=== PATIENT | male | born 1950 | race Caucasian/White ===

== ENCOUNTER 2019-06-25 09:53 | Outpatient (REF) | payer MEDICARE, BC, SELFPAY ==
[2019-06-25 20:34] LABS: Anion Gap 8.6 mmol/L (3-11); BUN 24 mg/dL (7-18); CO2 28.4 mmol/L (21.0-32.0); CREATININE 1.18 mg/dL (0.70-1.30); Calcium 9.1 mg/dL (8.5-10.1); Chloride 105 mmol/L (98-107); Glucose 94 mg/dL (74-106); Potassium 3.8 mmol/L (3.5-5.1); Sodium 142 mmol/L (136-145); Uric Acid 7.5 mg/dL (3.5-7.2)
== END 2019-06-25 10:13 ==
LOC: NCHCN 09:53
PROVIDERS: PCP Internal Medicine; Visit Provider Internal Medicine
DX: I10 Essential (primary) hypertension (principal); I25.10 Atherosclerotic heart disease of native coronary artery without angina pectoris; M10.9 Gout, unspecified; E66.3 Overweight
CPT/HCPCS: 80048; 84550

== ENCOUNTER 2019-12-24 10:44 | Outpatient (REF) | payer MEDICARE, BC, SELFPAY ==
[2019-12-24 20:02] LABS: Uric Acid 8.3 mg/dL (3.5-7.2)
[2019-12-24 20:21] LABS: ALT 77 U/L (16-63); AST 40 U/L (15-37); Calculated LDL 64 mg/dL (<100); Cholesterol 137 mg/dL (<200); HDL Cholesterol 29 mg/dL (40-60); Triglyceride 223 mg/dL (<150)
== END 2019-12-24 11:04 ==
LOC: NCHCN 10:44
PROVIDERS: Internal Medicine Cardiovascular Disease; PCP Internal Medicine; Visit Provider Internal Medicine
DX: M10.9 Gout, unspecified (principal); I10 Essential (primary) hypertension
CPT/HCPCS: 80061; 84450; 84460; 84550

== ENCOUNTER 2020-01-28 13:42 | Outpatient (REF) | payer MEDICARE, BC, SELFPAY ==
[2020-01-31 09:21] LABS: PSA, Screening 0.9 ng/mL (0.0-4.5)
== END 2020-01-28 14:02 ==
LOC: NCHCN 13:42
PROVIDERS: PCP Internal Medicine; Visit Provider Internal Medicine
DX: Z12.5 Encounter for screening for malignant neoplasm of prostate (principal)
CPT/HCPCS: 84153

== ENCOUNTER 2020-12-25 08:02 | Outpatient (REF) | payer MEDICARE, BC, SELFPAY ==
[2020-12-25 14:59] LABS: ALT 156 U/L (16-63); AST 76 U/L (15-37); Albumin 4.4 g/dL (3.4-5.0); Alkaline Phosphatase 121 U/L (46-116); Anion Gap 9.7 mmol/L (3-11); BUN 25 mg/dL (7-18); Bilirubin, Total 1.4 mg/dL (0.2-1.0); CO2 28.3 mmol/L (21.0-32.0); CREATININE 1.4 mg/dL (0.70-1.30); Calcium 9.4 mg/dL (8.5-10.1); Chloride 104 mmol/L (98-107); Glucose 90 mg/dL (74-106); Potassium 3.8 mmol/L (3.5-5.1); Sodium 142 mmol/L (136-145); Total Protein 7.5 g/dL (6.4-8.2); Uric Acid 7.4 mg/dL (3.5-7.2)
[2020-12-25 15:22] LABS: Calculated LDL 70 mg/dL (<100); Cholesterol 143 mg/dL (<200); HDL Cholesterol 31 mg/dL (40-60); Triglyceride 214 mg/dL (<150)
[2020-12-26 10:24] LABS: Hepatitis C Ab w Rflx HCV PCR Negative (Negative)
== END 2020-12-25 08:03 | disposition home or self-care (01) ==
LOC: NCHCN 08:02
PROVIDERS: PCP Internal Medicine; Visit Provider Internal Medicine
DX: Z00.00 Encounter for general adult medical examination without abnormal findings (principal); R79.89 Other specified abnormal findings of blood chemistry
CPT/HCPCS: 80053; 80061; 86803; 84550

== ENCOUNTER 2020-12-29 14:46 | Outpatient (REF) | payer MEDICARE, BC, SELFPAY ==
[2020-12-29 20:43] LABS: HGB 14.8 g/dL (13.5-17.5); MCH 29.2 pg (27.0-33.0); MCHC 33.6 % (32.0-36.0); MPV 11.8 fL (8.0-11.0); Platelet Count 186 10^3/uL (130-400); RBC 5.06 10^6/uL (4.36-5.78); RDW 13.7 % (11.8-14.1); RDW-SD 43.4 fL; WBC 6.85 10^3/uL (4.4-10.8)
[2020-12-29 21:06] LABS: Prothrombin Time 10.4 sec (9.3-11.0)
== END 2020-12-29 14:47 | disposition home or self-care (01) ==
LOC: NCHCN 14:46
PROVIDERS: PCP Internal Medicine; Visit Provider Internal Medicine
DX: I25.10 Atherosclerotic heart disease of native coronary artery without angina pectoris; R79.89 Other specified abnormal findings of blood chemistry
CPT/HCPCS: 85027; 85610

== ENCOUNTER 2021-04-25 16:19 | Outpatient (REF) | payer MEDICARE, SELFPAY ==
[2021-04-25 15:40] LABS: ALT 52 U/L (16-63); AST 28 U/L (15-37); Alkaline Phosphatase 95 U/L (46-116); Anion Gap 9.5 mmol/L (3-11); BUN 24 mg/dL (7-18); Bilirubin, Total 1.1 mg/dL (0.2-1.0); CO2 27.5 mmol/L (21.0-32.0); CREATININE 1.3 mg/dL (0.70-1.30); Calcium 9.3 mg/dL (8.5-10.1); Chloride 104 mmol/L (98-107); Glucose 92 mg/dL (74-106); Potassium 3.7 mmol/L (3.5-5.1); Sodium 141 mmol/L (136-145)
== END 2021-04-25 16:20 | disposition home or self-care (01) ==
LOC: NCHCN 16:19
PROVIDERS: PCP Internal Medicine; Visit Provider Internal Medicine
DX: K76.0 Fatty (change of) liver, not elsewhere classified (principal)
CPT/HCPCS: 80053

== ENCOUNTER 2022-02-18 13:47 | Outpatient (REF) | payer MEDICARE, SELFPAY ==
[2022-02-18 15:31] LABS: ALT 56 U/L (16-63); AST 45 U/L (15-37); Albumin 4.1 g/dL (3.4-5.0); Alkaline Phosphatase 104 U/L (46-116); Anion Gap 9.7 mmol/L (3-11); BUN 23 mg/dL (7-18); Bilirubin, Total 1.3 mg/dL (0.2-1.0); CO2 25.3 mmol/L (21.0-32.0); CREATININE 1.3 mg/dL (0.70-1.30); Calcium 9.2 mg/dL (8.5-10.1); Calculated LDL 61 mg/dL (<100); Chloride 105 mmol/L (98-107); Cholesterol 120 mg/dL (<200); Estimated GFR 59.47 (mL/min/1.73m2); Glucose 88 mg/dL (74-106); HDL Cholesterol 37 mg/dL (40-60); Sodium 140 mmol/L (136-145); Total Protein 7.6 g/dL (6.4-8.2); Triglyceride 113 mg/dL (<150)
== END 2022-02-18 13:48 | disposition home or self-care (01) ==
LOC: NCHCN 13:47
PROVIDERS: PCP Internal Medicine; Visit Provider Internal Medicine
DX: K76.0 Fatty (change of) liver, not elsewhere classified (principal); E78.5 Hyperlipidemia, unspecified
CPT/HCPCS: 80053; 80061

== ENCOUNTER 2023-03-26 09:13 | Outpatient (REF) | payer MEDICARE, SELFPAY ==
[2023-03-26 16:14] LABS: ALT 59 U/L (16-63); AST 37 U/L (15-37); Albumin 3.9 g/dL (3.4-5.0); Alkaline Phosphatase 104 U/L (46-116); Anion Gap 7.9 mmol/L (3-11); BUN 23 mg/dL (7-18); CO2 26.1 mmol/L (21.0-32.0); CREATININE 1.3 mg/dL (0.70-1.30); Calcium 9.3 mg/dL (8.5-10.1); Chloride 106 mmol/L (98-107); Glucose 114 mg/dL (74-106); Potassium 3.9 mmol/L (3.5-5.1); Sodium 140 mmol/L (136-145); Total Protein 7.3 g/dL (6.4-8.2); Uric Acid 5.6 mg/dL (3.5-7.2)
== END 2023-03-26 09:14 | disposition home or self-care (01) ==
LOC: NCHCN 09:13
PROVIDERS: PCP Internal Medicine; Visit Provider Internal Medicine
DX: E78.5 Hyperlipidemia, unspecified (principal); K76.0 Fatty (change of) liver, not elsewhere classified; M10.9 Gout, unspecified; Z00.00 Encounter for general adult medical examination without abnormal findings
CPT/HCPCS: 80053; 84550

== ENCOUNTER 2023-09-29 09:51 | Outpatient (REF) | payer MEDICARE, SELFPAY ==
--- OUTSIDE RECORDS SUMMARY | 2023-09-29 07:37 | XMS_ITS ---
Author Name Unknown Address [address] [place] [address] [phone] Phone Organization Unknown Address [address] [place] [address] [phone] Phone Care Team Providers Care Sales Demonstrator Name Role Phone PEARL Oliveira MD Attending Unavailable MAK NAIR Primary Unavailable Social History Type Status Start Date End Date Code Code Syst em Smoking History Never smoker (Never Smoked) 589077700 SNOMED CT Smoking History Unknown if ever smoked [id number] Sex Male Hospital Discharge Instructions Should you have any questions prior to discharge, please contact a member of your healthcare team. If you have left the hospital and have any questions, please contact your primary care physician. Reason For Referral No Data Found Plan of Treatment No Data Found Encounters Encounter Diagnosis Start Date Code Code Sys tem Atherosclerotic heart diseas e of [place] coronary artery without angina pectoris 01/10/2021 SNOMED-CT Personal Care Team Section Performer Name Performer Role Active Date Inactive Da te
[2023-09-29 14:55] LABS: HCT 44.5 % (40.0-50.0); MCH 30.5 pg (27.0-33.0); MCHC 33.7 % (32.0-36.0); MCV 91 fL (80-95); MPV 11.3 fL (8.0-11.0); Platelet Count 184 10^3/uL (130-400); RBC 4.91 10^6/uL (4.36-5.78); RDW 14.3 % (11.8-14.1); RDW-SD 47.1 fL; WBC 5.42 10^3/uL (4.4-10.8)
[2023-09-29 15:08] LABS: ALT 57 U/L (16-63); AST 39 U/L (15-37); Albumin 3.9 g/dL (3.4-5.0); Alkaline Phosphatase 114 U/L (46-116); Anion Gap 9.5 mmol/L (3-11); BUN 25 mg/dL (7-18); CO2 25.5 mmol/L (21.0-32.0); CREATININE 1.2 mg/dL (0.70-1.30); Calcium 9.2 mg/dL (8.5-10.1); Calculated LDL 58 mg/dL (<100); Chloride 105 mmol/L (98-107); Cholesterol 132 mg/dL (<200); Estimated GFR 64.65 (mL/min/1.73m2); Glucose 112 mg/dL (74-106); HDL Cholesterol 34 mg/dL (40-60); Potassium 4.1 mmol/L (3.5-5.1); Sodium 140 mmol/L (136-145); Total Protein 7.2 g/dL (6.4-8.2); Triglyceride 204 mg/dL (<150)
== END 2023-09-29 09:52 | disposition home or self-care (01) ==
LOC: NCHCN 09:51
PROVIDERS: PCP Internal Medicine; Visit Provider Internal Medicine
DX: K76.0 Fatty (change of) liver, not elsewhere classified (principal)
CPT/HCPCS: 80053; 80061; 85027

== ENCOUNTER 2024-07-08 09:20 | Outpatient (REF) | payer MEDICARE, SELFPAY ==
[2024-07-08 14:44] LABS: HCT 43.9 % (40.0-50.0); HGB 14.9 g/dL (13.5-17.5); MCH 30.3 pg (27.0-33.0); MCHC 33.9 % (32.0-36.0); MCV 89 fL (80-95); MPV 11.2 fL (8.0-11.0); Platelet Count 188 10^3/uL (130-400); RBC 4.91 10^6/uL (4.36-5.78); RDW 14.8 % (11.8-14.1); RDW-SD 48.3 fL; WBC 6.14 10^3/uL (4.4-10.8)
[2024-07-08 15:06] LABS: ALT 68 U/L (16-63); AST 43 U/L (15-37); Albumin 3.8 g/dL (3.4-5.0); Alkaline Phosphatase 107 U/L (46-116); Anion Gap 8.9 mmol/L (3-11); BUN 24 mg/dL (7-18); Bilirubin, Total 1.5 mg/dL (0.2-1.0); CO2 25.1 mmol/L (21.0-32.0); CREATININE 1.2 mg/dL (0.70-1.30); Calcium 9.6 mg/dL (8.5-10.1); Calculated LDL 57 mg/dL (<100); Chloride 107 mmol/L (98-107); Cholesterol 130 mg/dL (<200); Estimated GFR 64.65 (mL/min/1.73m2); Glucose 97 mg/dL (74-106); HDL Cholesterol 38 mg/dL (>or=40); Potassium 4.2 mmol/L (3.5-5.1); Sodium 141 mmol/L (136-145); Triglyceride 179 mg/dL (<150)
[2024-07-08 18:22] LABS: Hemoglobin A1C 5.8 % (<5.7)
== END 2024-07-08 09:21 | disposition home or self-care (01) ==
LOC: NCHCN 09:20
PROVIDERS: PCP Internal Medicine; Visit Provider Internal Medicine
DX: K76.0 Fatty (change of) liver, not elsewhere classified (principal); R73.01 Impaired fasting glucose
CPT/HCPCS: 80053; 80061; 85027; 83036